=== PATIENT | female | born 1965 | race Two or more races ===

== ENCOUNTER 2025-02-13 08:32 | Day surgery (SDC) | payer MEDICARE, MEDICAID, SELFPAY ==
[2025-02-07 10:32] VITALS: BMI 53.1
[2025-02-13 09:34] VITALS: BP 157/91; PULSE 60; RESP 16; TEMP 36.1; O2SAT 99; BMI 52.2
[2025-02-13] MEDS: PHENYLEPHRINE 2.5% OPHTH SOLN 2ML OP ×3 (09:35→09:45)
[2025-02-13] MEDS: TETRACAINE 0.5% OPTH SOL 15ML OP ×3 (09:35→09:45)
[2025-02-13] MEDS: CYCLOPENTOLATE 2% OPHTH SOLN 2ML BOTTLE OP ×3 (09:35→09:45)
[2025-02-13 12:20] VITALS: BP 190/99; PULSE 54; RESP 16; O2SAT 100
[2025-02-13 12:25] VITALS: BP 184/98; PULSE 55; RESP 16; O2SAT 100
[2025-02-13] MEDS: MIDAZOLAM 2MG/2ML VIAL 1 MG IV (12:28)
[2025-02-13] MEDS: TOBRAMYCIN/DEX OPTH SUSP 2.5ML OP (12:28)
[2025-02-13] MEDS: LIDOCAINE 1% PF 2ML VIAL 2 ML IJ (12:28)
[2025-02-13] MEDS: TIMOLOL 0.5% OPTH SOLN 5ML OP (12:29)
[2025-02-13 12:30] VITALS: BP 187/96; PULSE 56; RESP 16; O2SAT 100
[2025-02-13 12:35] VITALS: BP 197/98; PULSE 57; RESP 16; O2SAT 100
[2025-02-13 12:40] VITALS: BP 151/78; PULSE 65; RESP 18; TEMP 36.1; O2SAT 98
--- NOTE | 2025-02-13 14:50 | P.PCN_ITS ---
[facility] Procedure Note Date: 02/13/25 Time: 14:50 Procedure Note:: Preoperative Diagnosis: Cataract combined NS Cortical Complex [Left] Eye Postop diagnosis: same Operation: Microscopic phacoemulsification with intraocular lens implant [Left] Eye Specimen: None Blood Loss: None The patient was examined in the office with a complaint of poor vision in the [left] eye. The patient reports that this interferes with ADLs such as reading, watching TV and/or driving or the vision is like looking through a foggy haze and is very troubling. The patient was examined and found to have a visually significant cataract with best corrected vision of [20/400] by refraction and/or glare testing. Treatment options, risks and benefits were explained and the patient elected to have cataract surgery in an attempt to improve their vision. The patient had the eye anesthetized with topical tetracaine, the eye ways prepped and draped in the usual fashion for cataract surgery. A paracentesis and a temporal keratotomy were made. 0.2cc of 1% lidocaine PF was placed into the anterior chamber. The patient had a poor red reflex due to advanced nature of the cataract. Vision blue was instilled into the eye to stain the anterior capsule to more safely perform the capsulorhexis. An aqueous/viscoelastic exchange was done and a 360 degree capsulorexis was performed. Through hydrodissection and delineation with BSS on a cannula was done. The lens nucleus was phecoemulsified with CDE of [6.96]. Residual cortical material was removed using automated I&A The capsular bag was deepened with viscoelastica and a PCIOL was placed in the capsular bag with good centration and stability. Residual viscoelastic was removed using automated I&A. The keratotomy incision was hydrated with BSS on a cannula. The wound were checked and found to be water tight. IOP was checked digitally and adjusted as needed so as not to be too high. 1 drop of timolol 0.5%, ofloxacin, prednisolone acetate and ketorolac was instilled and eye shield taped over the eye. The patient was taken to recovery in good condition and will be seen postoperatively.
== END 2025-02-13 12:45 | disposition home or self-care (01) ==
PROVIDERS: PCP Family Medicine; Visit Provider Ophthalmology
DX: H25.812 Combined forms of age-related cataract, left eye (principal); E78.00 Pure hypercholesterolemia, unspecified; I10 Essential (primary) hypertension; E11.9 Type 2 diabetes mellitus without complications; F17.200 Nicotine dependence, unspecified, uncomplicated; M19.90 Unspecified osteoarthritis, unspecified site; F32.A Depression, unspecified; Z88.2 Allergy status to sulfonamides; Z79.899 Other long term (current) drug therapy
CPT/HCPCS: 66984; J2250; V2632

== ENCOUNTER 2025-02-27 08:56 | Day surgery (SDC) | payer MEDICARE, MEDICAID, SELFPAY ==
--- NOTE | 2025-02-22 14:26 | SUR.PREOP ---
attempted to call pt for preop interview. mailbox is full
[2025-02-26 14:31] VITALS: BMI 51.3
[2025-02-27] MEDS: CYCLOPENTOLATE 2% OPHTH SOLN 2ML BOTTLE OP ×3 (09:30→09:40)
[2025-02-27] MEDS: TETRACAINE 0.5% OPTH SOL 15ML OP ×3 (09:30→09:40)
[2025-02-27 09:31] VITALS: BP 128/95; PULSE 61; RESP 16; TEMP 36.1; O2SAT 98; BMI 51.3
[2025-02-27] MEDS: PHENYLEPHRINE 2.5% OPHTH SOLN 2ML OP ×3 (09:35→09:52)
[2025-02-27 10:20] VITALS: BP 173/94; PULSE 56; RESP 16; O2SAT 98
[2025-02-27] MEDS: MIDAZOLAM 2MG/2ML VIAL 1 MG IV (10:21)
[2025-02-27] MEDS: TOBRAMYCIN/DEX OPTH SUSP 2.5ML OP (10:22)
[2025-02-27] MEDS: LIDOCAINE 1% PF 2ML VIAL 2 ML IJ (10:22)
[2025-02-27] MEDS: TIMOLOL 0.5% OPTH SOLN 5ML OP (10:22)
[2025-02-27 10:25] VITALS: BP 181/93; PULSE 55; RESP 16; O2SAT 98
[2025-02-27 10:30] VITALS: BP 186/90; PULSE 56; RESP 16; O2SAT 97
[2025-02-27 10:34] VITALS: BP 182/95; PULSE 57; RESP 16; O2SAT 98
[2025-02-27 10:38] VITALS: BP 140/89; PULSE 61; RESP 18; TEMP 36.6; O2SAT 98
== END 2025-02-27 10:50 | disposition home or self-care (01) ==
PROVIDERS: PCP Family Medicine; Visit Provider Ophthalmology
DX: E11.36 Type 2 diabetes mellitus with diabetic cataract (principal); H25.811 Combined forms of age-related cataract, right eye; H02.833 Dermatochalasis of right eye, unspecified eyelid; H02.836 Dermatochalasis of left eye, unspecified eyelid; H52.223 Regular astigmatism, bilateral; E78.00 Pure hypercholesterolemia, unspecified; F32.A Depression, unspecified; I10 Essential (primary) hypertension; F17.200 Nicotine dependence, unspecified, uncomplicated; Z88.2 Allergy status to sulfonamides; Z79.899 Other long term (current) drug therapy
CPT/HCPCS: 66984; J2250; V2632